=== PATIENT | female | born 1965 ===

== ENCOUNTER 2024-02-10 08:23 | Day surgery (SDC) | payer OTHER ==
[~2024-02-10] VITALS: Ht 154.9 cm; Wt 59.0 kg
[~2024-02-10 08:23] MED LIST: EUTHYROX125 MCG PO; Lactated Ringer's 1,000 ML IV ONE; propofoL 50 ML IV ONE
[2024-02-10] MEDS ORDERED: Lactated Ringer's 1,000 ML IV ONE (09:14)
[2024-02-10 10:25] VITALS: BP 106/77
== END 2024-02-10 10:39 | disposition home or self-care (01) ==
LOC: ORSCSDS 08:23
PROVIDERS: Internal Medicine Gastroenterology
PROC: 0DBN8ZX Excision of Sigmoid Colon, Via Natural or Artificial Opening Endoscopic, Diagnostic (ICD-10-PCS; principal; 2024-02-10 09:30)
PROC: 0DBP8ZX Excision of Rectum, Via Natural or Artificial Opening Endoscopic, Diagnostic (ICD-10-PCS; principal; 2024-02-10 09:30)
PROC: 0DBK8ZX Excision of Ascending Colon, Via Natural or Artificial Opening Endoscopic, Diagnostic (ICD-10-PCS; principal; 2024-02-10 09:30)
DX: Z12.11 Encounter for screening for malignant neoplasm of colon (principal); Z80.0 Family history of malignant neoplasm of digestive organs; D12.5 Benign neoplasm of sigmoid colon; D12.2 Benign neoplasm of ascending colon; D12.8 Benign neoplasm of rectum; K63.89 Other specified diseases of intestine; K64.4 Residual hemorrhoidal skin tags; E03.9 Hypothyroidism, unspecified; Z79.899 Other long term (current) drug therapy
CPT/HCPCS: 88305; J2704; J7120

== ENCOUNTER 2024-05-27 19:27 | Observation (INO) | payer OTHER ==
[~2024-05-27] VITALS: Ht 154.9 cm; Wt 62.4 kg
[~2024-05-27 19:27] MED LIST changes: -Lactated Ringer's 1,000 ML IV ONE; -propofoL 50 ML IV ONE
[2024-05-27] MEDS ORDERED: HYDROmorphone HCl/Pf 1MG SYR IV ONE (20:30)
[2024-05-27 20:46] LABS: BASOPHILS ABSOLUTE AUTO 0.11 K/mm3 (0.00-0.23); BASOPHILS PERCENT AUTO 1 % (0-2); EOSINOPHILS ABSOLUTE AUTO 0.06 K/mm3 (0.00-0.68); EOSINOPHILS PERCENT AUTO 0 % (0-6); IMMATURE GRAN ABSOLUTE AUTO 0.08 K/mm3 (0.00-0.10); IMMATURE GRAN PERCENT AUTO 1 % (0-1); LYMPHOCYTES ABSOLUTE AUTO 2.07 K/mm3 (0.84-5.20); LYMPHOCYTES PERCENT AUTO 12 % (21-46); MONOCYTES ABSOLUTE AUTO 1.31 K/mm3 (0.16-1.47); MONOCYTES PERCENT AUTO 8 % (4-13); Mean Corpuscular HGB 30.4 pg (26.0-34.0); Mean Corpuscular HGB Conc 33.3 g/dL (31.5-36.5); Mean Corpuscular Volume 91 fL (80-100); Mean Platelet Volume 9.5 fL (9.1-12.4); NEUTROPHILS ABSOLUTE AUTO 13.57 K/mm3 (1.96-9.15); NEUTROPHILS PERCENT AUTO 79 % (41-73); Platelet Count 392 K/mm3 (150-400); RDW Coefficient Variation 12.4 % (11.7-14.2); RDW Standard Deviation 41.2 fL (35.1-46.3); Red Blood Cell Count 4.27 M/mm3 (3.80-5.20)
[2024-05-27 21:07] LABS: Albumin, Blood 3.2 g/dL (3.4-5.0); Albumin/Globulin Ratio 0.8 (0.8-1.8); Bilirubin, Total 0.2 mg/dL (0.1-1.0); Bun/Creatinine Ratio 26.4 (12.0-20.0); Calcium, Blood 8.8 mg/dL (8.5-10.1); Creatinine, Blood 0.76 mg/dL (0.40-1.00); Globulin, Blood 3.9 g/dL (2.2-4.0); Potassium, Blood 3.5 mmol/L (3.5-5.5); Total Protein, Blood 7.1 g/dL (6.4-8.2)
[2024-05-27] MEDS ORDERED: Morphine Sulfate 4 MG/1 ML Injection IV PRN (21:40)
[2024-05-27] MEDS ORDERED: D5W-1/2NS KCl 20mEq 1,000 ML IV SCH (21:40)
[2024-05-27] MEDS ORDERED: FLU VACC TS2024-25(6MOS UP)/PF 45 MCG/0.5 ML SYRINGE IM ONE (21:40)
[2024-05-28 02:00] LABS: BASOPHILS ABSOLUTE AUTO 0.06 K/mm3 (0.00-0.23); BASOPHILS PERCENT AUTO 0 % (0-2); EOSINOPHILS PERCENT AUTO 0 % (0-6); Hematocrit 36.7 % (33.0-51.0); Hemoglobin 12.4 g/dL (11.5-16.0); IMMATURE GRAN ABSOLUTE AUTO 0.06 K/mm3 (0.00-0.10); IMMATURE GRAN PERCENT AUTO 0 % (0-1); LYMPHOCYTES PERCENT AUTO 11 % (21-46); MONOCYTES PERCENT AUTO 4 % (4-13); Mean Corpuscular HGB 30.8 pg (26.0-34.0); Mean Corpuscular HGB Conc 33.8 g/dL (31.5-36.5); Mean Corpuscular Volume 91 fL (80-100); Mean Platelet Volume 9.6 fL (9.1-12.4); NEUTROPHILS ABSOLUTE AUTO 13.48 K/mm3 (1.96-9.15); NEUTROPHILS PERCENT AUTO 84 % (41-73); Platelet Count 401 K/mm3 (150-400); RDW Coefficient Variation 12.3 % (11.7-14.2); RDW Standard Deviation 41.1 fL (35.1-46.3); Red Blood Cell Count 4.02 M/mm3 (3.80-5.20)
[2024-05-28] MEDS ORDERED: Levothyroxine Sodium 0.125 MG Tab PO SCH (06:00)
[2024-05-28 08:27] VITALS: BP 119/63
[2024-05-28] MEDS ORDERED: D5W-1/2NS KCl 20mEq 1,000 ML IV SCH (09:11)
[2024-05-28 15:18] VITALS: BP 114/70
[2024-05-28] MEDS ORDERED: Ondansetron HCl 2 MG / ML 2ML Vial IV PRN (15:25)
--- NOTE | 2024-05-28 18:30 | NUR ---
SHIFT SUMMARY PT ADMITTED FOR RLE FX, SPLINT APPLIED IN THE ER, PT SET FOR SURGERY BUT WAS BUMPED DUE TO ANESTHESIA HAVING TO GO TO FB, THIS WAS DISCUSSED WITH HER AND NEW PLAN TO DO SURGERY TOMORROW. SHE IS ABLE TO GET UP AND AMBULATE TO THE BATHROOM WITH WALKER AND SBA. NO ACUTE EVENTS THIS SHIFT, CALL LIGHT IN REACH.
[2024-05-28 20:28] VITALS: BP 113/81
[2024-05-29] VITALS (14 sets, daily range): BP systolic 103–143; BP diastolic 54–83
--- NOTE | 2024-05-29 06:10 | NUR ---
NOC SHIFT SUMMARY- PT PAIN MANAGED WELL. PT SPLINT REWRAPPED WITH IMPROVED COMFORT. PT HAS GOOD PULSES IN RIGHT FOOT. PT HAS BEEN NPO SINCE [place]. PT VOIDING VIA PW DEVICE. PT HAS HAD CHG WIPE DOWN. PT HAS BEEN RESTING COMFORTABLY. CALL LIGHT IN REACH.
[2024-05-29] MEDS ORDERED: CeFAZolin Sodium 2,000 MG in NS 100 ML IV SCH (06:30)
[2024-05-29] MEDS ORDERED: Tranexamic Acid 100 ML IV SCH (06:30)
[2024-05-29] MEDS ORDERED: Lactated Ringer's 1,000 ML IV SCH (13:10)
--- NOTE | 2024-05-29 13:50 | NUR ---
PT TO PRE OP
[2024-05-29] MEDS ORDERED: CeFAZolin Sodium 2,000 MG VIAL ONE (14:00)
[2024-05-29] MEDS ORDERED: HYDROmorphone HCl/Pf 1MG SYR ONE ×2 (14:11→17:13)
[2024-05-29] MEDS ORDERED: Midazolam HCl 1MG / ML 2ML Vial ONE (14:11)
[2024-05-29] MEDS ORDERED: propofoL 0 ML IV ONE (14:12)
[2024-05-29] MEDS ORDERED: propofoL 50 ML IV ONE (14:17)
[2024-05-29] MEDS ORDERED: Bupivacaine 0.5% HCl 5 MG/ML 30MLVIAL ONE (14:19)
[2024-05-29] MEDS ORDERED: Rocuronium Bromide 10 MG/ML 5ML Injection IV ONE (14:21)
--- NOTE | 2024-05-29 14:23 | NUR ---
PT TO UNIT VIA [facility]. History, Chart, Medications and Allergies reviewed before start of procedure. Pre-Op teaching done. Pt verbalizes understanding. Patient confirms NPO status and agrees with scheduled surgery. SPOUSE AT BEDSIDE. NOSE STUD REMAINS IN PLACE, JEWELRY REFUSAL SIGNED. PT ABLE TO URINATE USING PUREWICK IN PRE OP.
[2024-05-29] MEDS ORDERED: Dexamethasone Sod Phos 10 MG/ML 1ML VIAL ONE (14:34)
[2024-05-29] MEDS ORDERED: Bupivacaine 0.5% W/EPI 1:200000 SDV 30 ML Vial ONE (14:35)
[2024-05-29] MEDS ORDERED: Phenylephrine HCl 100 MCG/ML-NS 10MLSYR (1MG/10ML) ONE (15:12)
[2024-05-29] MEDS ORDERED: FentaNYL Citrate 50 MCG/ML 2 ML Injection ONE (15:21)
[2024-05-29] MEDS ORDERED: Haloperidol Lactate Inj. 5 MG/ML Injection IV PRN (15:50)
[2024-05-29] MEDS ORDERED: Ondansetron HCl 2 MG / ML 2ML Vial IV PRN (15:50)
[2024-05-29] MEDS ORDERED: FentaNYL Citrate 50 MCG/ML 2 ML Injection IV PRN ×2 (15:50)
[2024-05-29] MEDS ORDERED: HYDROmorphone HCl/Pf 1MG SYR IV PRN ×2 (15:55)
[2024-05-29] MEDS ORDERED: propofoL 40 ML IV ONE (16:14)
[2024-05-29] MEDS ORDERED: Sugammadex Sodium 200 MG/2ML SDV (100 MG/ML) ONE (16:27)
[2024-05-29] MEDS ORDERED: Ketorolac Tromethamine 30mg Vial ONE (16:29)
[2024-05-29] MEDS ORDERED: Ondansetron HCl 2 MG / ML 2ML Vial ONE (16:29)
[2024-05-29] MEDS ORDERED: HYDROmorphone HCl 2 MG Tab PO PRN (17:40)
--- NOTE | 2024-05-29 17:45 | NUR ---
PT ARRIVED TO ROOM 213 FROM PACU IN BED. VSS. ABLE TO WIGGLE TOES. SPLINT/EVELYNE WRAP TO RLE CDI. CAP REFILL <3 SECONDS. CALL LIGHT IN REACH. PT DECLINED DINNER TRAY BUT IS SIPPING WATER. RATES PAIN 2-3 ON PAIN SCALE.
[2024-05-29] MEDS ORDERED: Calcium Carbonate 500 MG Tab Chew PO PRN (21:15)
[2024-05-30 00:24] VITALS: BP 115/71
[2024-05-30 04:45] VITALS: BP 129/72
[2024-05-30 07:18] VITALS: BP 127/73
[2024-05-30] MEDS ORDERED: HYDROcodone 5-APAP 325 TAB PO PRN ×2 (07:50→09:10)
[2024-05-30] MEDS ORDERED: HYDR1TAB94 PO (12:44)
[2024-05-30 14:32] VITALS: BP 131/70
--- NOTE | 2024-05-30 15:26 | NUR ---
discharged reviewed dc instructions w/pt; verbalized understanding. cleared therapy. rec'd fww. left unit in [place] w/possessions and dc paperwork in hand, accomapied by spouse.
== END 2024-05-30 15:05 | disposition home or self-care (01) ==
LOC: ER 19:27 → ERHOLD 21:36 → SURS 21:36
PROVIDERS: Orthopaedic Surgery; Physician Assistant; ADMIT Internal Medicine
PROC: 0QSG06Z Reposition Right Tibia with Intramedullary Internal Fixation Device, Open Approach (ICD-10-PCS; principal; 2024-05-29 14:00)
DX: S82.391A Other fracture of lower end of right tibia, initial encounter for closed fracture (principal); S82.431A Displaced oblique fracture of shaft of right fibula, initial encounter for closed fracture; W01.0XXA Fall on same level from slipping, tripping and stumbling without subsequent striking against object, initial encounter; E03.9 Hypothyroidism, unspecified; Z79.890 Hormone replacement therapy; Z88.8 Allergy status to other drugs, medicaments and biological substances; Z90.49 Acquired absence of other specified parts of digestive tract; Z90.710 Acquired absence of both cervix and uterus
CPT/HCPCS: 29515; 73590; 73610; 80053; 85025; 96374-59; 96375; 96376; 97110; 97116; 97161; 99284-25; A9270; G0378; J0690; J1100; J1171; J1885; J2250; J2270; J2371; J2405; J2704; J3010; J7120